=== PATIENT | male | born 1980 | race Two or more races ===

== ENCOUNTER 2019-08-26 18:17 | Emergency (ER) | payer OTHER ==
[~2019-08-26] VITALS: Ht 170.2 cm; Wt 75.8 kg
--- NOTE | 2019-08-26 19:46 | NUR ---
us at bedside
[2019-08-26] MEDS ORDERED: CEFTRIAXONE SOD 1 GM VIAL ONE (20:22)
[2019-08-26] MEDS ORDERED: AZITHROMYCIN 250 MG TAB PO ONE (20:30)
[2019-08-26] MEDS ORDERED: CEFTRIAXONE SOD 1 GM VIAL IM ONE (20:30)
[2019-08-26] MEDS ORDERED: AZITHROMYCIN 250 MG TAB ONE (20:36)
--- NOTE | 2019-08-26 20:56 | Diagnostic Imaging Report ---
EXAM: Scrotal Ultrasound with Duplex INDICATION: Pain. COMPARISON: None TECHNIQUE: Transverse and longitudinal images were obtained of the scrotum with grayscale imaging, color Doppler and spectral waveform analysis. FINDINGS: Right testis: Size: 2.4 x 1.5 x 2.0 cm, normal in size. Echogenicity: Normal Mass/Cysts: None Left testis: Size: 3.2 x 1.4 x 1.8 cm, normal in size. Echogenicity: Normal Mass/Cysts: None Epididymis: Appearance: The right epididymis is enlarged and heterogeneous and demonstrates increased vascularity compatible with epididymitis. Mass/Cysts: None Extratesticular: Masses: None Hydrocele: Small right hydrocele Varicocele: Bilateral Doppler: Normal arterial flow to both testes and symmetrical flow on color Doppler evaluation is seen. No evidence of testicular torsion. IMPRESSION: 1. Right epididymitis. 2. Small right hydrocele. 3. Bilateral varicoceles. Signed by: Rajinder Ann MD on 08/26/2019 8:53 PM
[2019-08-26 21:04] VITALS: BP 139/91
== END 2019-08-26 21:06 | disposition home or self-care (01) ==
LOC: FSED 18:17
DX: N50.811 Right testicular pain (principal); I86.1 Scrotal varices; N45.1 Epididymitis
CPT/HCPCS: 76870; 81003; 96372; 99283; J0696